=== PATIENT | female | born 2000 ===

== ENCOUNTER 2021-06-28 18:40 | Emergency (ER) | payer BC, OTHER ==
[2021-06-28] MEDS ORDERED: Ondansetron 4 MG Tab.DIS PO ONE (20:11)
[2021-06-28 20:20] LABS: BLOOD UREA NITROGEN,BUN 7 mg/dL (7.0-18.0); CARBON DIOXIDE,CO2 25.8 mmol/L (21.0-32.0); CHLORIDE,CL 103 mmol/L (98-107); GLUCOSE RANDOM 104 mg/dL (74-106); POTASSIUM,K 3.7 mmol/L (3.5-5.1); SODIUM,NA 142 mmol/L (136-145)
== END 2021-06-28 21:06 | disposition home or self-care (01) ==
LOC: MW.ED 18:40
DX: T59.6X1A Toxic effect of hydrogen sulfide, accidental (unintentional), initial encounter (principal)
CPT/HCPCS: 36415; 71045; 80053; 83605; 83735; 84484; 84703; 85025; 93005; 99284; A9270